=== PATIENT | male | born 1935 | race Caucasian/White ===

== ENCOUNTER 2022-03-19 06:11 | Emergency (ER) | payer MEDICARE, OTHER ==
[~2022-03-19] VITALS: Ht 182.9 cm; Wt 102.3 kg
[2022-03-19] MEDS ORDERED: piperacillin/tazo 3.375gm/50ml 50 ML IV ONE (06:50)
[2022-03-19] MEDS ORDERED: LIDOcaine 1% W/epiNEPHrine 1:100,000 20ml vial SQ ONE (06:50)
[2022-03-19] MEDS ORDERED: LIDOcaine 1% w/EPI 1:100,000 30ml vial (MDV) SQ ONE (06:50)
[2022-03-19 07:56] LABS: BASOPHILS % (AUTO) 0.2 % (0-1); EOSINOPHILS % (AUTO) 0.2 % (0-6); HEMATOCRIT 43.4 % (42.0-52.0); HEMOGLOBIN 14.3 g/dl (14.0-17.9); LYMPHOCYTES # (AUTO) 1.1 X10'3 (1.1-4.8); LYMPHOCYTES % (AUTO) 10.8 % (21-51); MEAN CORPUSCULAR HEMOGLOBIN 30.6 PG (27.0-31.0); MEAN CORPUSCULAR HGB CONC 32.9 g/dL (33.0-36.5); MEAN CORPUSCULAR VOLUME 93.1 FL (78-98); MEAN PLATELET VOLUME 9.7 FL (7.4-10.4); MONOCYTES # (AUTO) 1.2 X10'3 (0-0.9); MONOCYTES % (AUTO) 11.9 % (2-12); NEUTROPHILS # (AUTO) 7.8 X10'3 (1.8-7.7); NEUTROPHILS % (AUTO) 76.9 % (42-75); PLATELET COUNT 177 X10'3 (140-440); RED BLOOD COUNT 4.67 X10'6 (4.70-6.10); RED CELL DISTRIBUTION WIDTH 13.9 % (11.5-14.5); WHITE BLOOD COUNT 10.1 X10'3 (4.5-11.0)
[2022-03-19 08:14] LABS: ALANINE AMINOTRANSFERASE 33 U/L (12-78); ALBUMIN 3.5 G/DL (3.4-5.0); ALBUMIN/GLOBULIN RATIO 0.9 (1.1-1.5); ALKALINE PHOSPHATASE 84 IU/L (46-116); ANION GAP 8 (8-16); ASPARTATE AMINO TRANSFERASE 28 U/L (10-37); BILIRUBIN,TOTAL 1.3 MG/DL (0.1-1.0); BLOOD UREA NITROGEN 21 MG/DL (7-18); BUN/CREATININE RATIO 18.6 (5.4-32.0); CALCIUM 9.4 MG/DL (8.5-10.1); CHLORIDE 101 MMOL/L (99-107); CREATININE 1.13 MG/DL (0.60-1.10); GLUCOSE 117 MG/DL (70-104); MAGNESIUM 1.6 MG/DL (1.5-2.4); SODIUM 137 MMOL/L (135-145); TOTAL CARBON DIOXIDE 27.9 MMOL/L (24-32); TOTAL PROTEIN 7.5 G/DL (6.4-8.2); eGFR 62 ML/MIN
[2022-03-19 08:28] VITALS: BP 131/94
[2022-03-19 09:18] LABS: CLARITY,URINE CLEAR (Clear); COLOR,URINE YELLOW (Yellow); GLUCOSE, URINE NEGATIVE (Neg); KETONES,URINE NEGATIVE (Neg); LEUKOCYTE ESTERASE ,URINE NEGATIVE (Neg); NITRITES, URINE NEGATIVE (Neg); OCCULT BLOOD,URINE SMALL (Neg); PH,URINE 5.5 (4.8-8.0); PROTEIN,URINE NEGATIVE (Neg); UROBILINOGEN,URINE 0.2 E.U/dL (0.2-1.0)
[2022-03-19 09:22] LABS: UA COLLECTION TYPE CLN CATCH MIDSTREAM
[2022-03-19 09:41] LABS: BACTERIA,URINE FEW /HPF (Neg); MUCUS STRANDS NONE SEEN /LPF (Neg); RBC,URINE 0-2 /HPF (0-2); SQUAMOUS EPITHELIAL CELL,UR FEW /LPF (FEW); WBC,URINE 0-4 /HPF (0-4)
[2022-03-19 10:34] LABS: BODY FLUID CRYSTALS QT NONE SEEN (NONE SEEN); CRYSTAL ID, BODY FLD NONE SEEN (NONE SEEN)
[2022-03-19] MEDS ORDERED: DOXY100C76 PO (11:06)
[2022-03-19] MEDS ORDERED: LINE600T11 PO (11:06)
[2022-03-19] MEDS ORDERED: HYDR-3965 PO (11:07)
== END 2022-03-19 11:28 | disposition home or self-care (01) ==
LOC: ER 06:11
DX: L02.511 Cutaneous abscess of right hand (principal); I51.9 Heart disease, unspecified; Z79.899 Other long term (current) drug therapy
CPT/HCPCS: 10060; 36415; 73120; 80053; 81001; 83605; 83735; 84145; 85025; 87040; 87070; 89060; 93005; 96365; 99285; J2543; J3490; A6449

== ENCOUNTER 2022-07-30 18:35 | Emergency (ER) | payer MEDICARE, OTHER ==
[~2022-07-30] VITALS: Ht 182.9 cm; Wt 102.3 kg
[2022-07-30 19:22] VITALS: BP 141/78
[2022-07-30] MEDS ORDERED: acetaminophen 325mg tablet PO ONE (20:25)
[2022-07-30] MEDS ORDERED: HYDROcodone/acetaminophen 5mg/325mg tablet PO ONE (20:25)
[2022-07-30] MEDS ORDERED: HYDR-3965 PO (20:30)
== END 2022-07-30 21:08 | disposition home or self-care (01) ==
LOC: ER 18:36
DX: M79.671 Pain in right foot (principal); M79.89 Other specified soft tissue disorders
CPT/HCPCS: 73610; 73630; 99284

== ENCOUNTER 2025-03-23 16:50 | Emergency (ER) | payer MEDICARE, OTHER ==
[~2025-03-23] VITALS: Ht 182.9 cm; Wt 101.6 kg
--- NOTE | 2025-03-23 17:05 | ELECTROCARDIOGRAPH REPORT ---
[facility] Test Date: 2025-03-23 Test Time: 16:54:40 Pat Name: [facility] Department: EMERGENCY ROOM Patient ID: [facility]-[id number] Room: Gender: M [employer]: [place] : 1935 Requested By: PAUELTTE MUNOZ Order Number: [id number] Reading MD: Dr. RICHARD Oliver Measurements Intervals [place] Rate: 98 P: 0 [place]: 0 QRS: -16 QRSD: 109 T: 28 QT: 354 QTc: 453 Interpretive Statements Atrial fibrillation Incomplete RBBB and LAFB Low voltage, precordial leads RSR' in V1 or V2, right VCD or RVH Electronically Signed On 03-25-2025 15:16:[address] RICHARD Oliver Please click the below link to view image of tracing.
--- NOTE | 2025-03-23 17:11 | Physician Documentation ---
History of Present Illness ~ Chief Complaint: Chest Pain Stated Complaint: CP Time Seen by MD: 21:36 Primary Medical Doctor: DR. TAO HPI Patient is a very pleasant 89-year-old male that presents to the emergency department accompanied by his for angina. Patient reports that he is currently a patient of Dr. Amaya in his previously been diagnosed with AFib. Patient reports he has had intermittent angina since yesterday. Patient denies patient's pain right now but would like to be evaluated. Patient reports that he has a follow up with Dr. Uriarte on Wednesday. Patient denies radiation with chest pain shortness of breath chest pressure vision changes nausea vomiting diarrhea or any other symptoms at this time. Medication Reconciliation Allergies: Coded Allergies: No Known Allergies (Unverified , 03/23/25) Past Medical History Past Medical History: Atrial Fibrillation, Gout Past Surgical History: noncontributory Drug Use: none Lives with: Family Lives In: Home Review of Systems Constitutional: Denies: fever Respiratory: Denies: shortness of breath Cardiovascular: Reports: chest pain Physical Exam Vital Signs: Temperature: 98.3, Source: Temporal, Heart Rate: 98, Respiratory Rate: 16, BP: 139/79, Pulse Oximetry: 99, Weight: 101.600 Oxygen Flow Rate: 0 Physical Exam General: This is a pleasant elderly man, hard of hearing, family at bedside HEENT: Atraumatic, oropharynx appears dry Heart: Irregular rhythm with a heart rate in the 90s, appears atrial fibrillation on the monitor, no loud murmur, normal-appearing peripheral perfusion Lungs: Clear breath sounds bilateral, normal work of breathing, normal oxygen saturation on room air Abdomen: Soft, nondistended, nontender all quadrants Extremities: Warm and well-perfused, no significant edema Neuro: Alert and oriented Psychiatric: Calm and cooperative with exam Progress Results/Orders Results/Orders Vital Signs 03/23/25 03/23/25 03/23/25 03/23/25 16:57 19:00 20:57 22:27 Temp 98.3 98.3 98.1 Pulse 98 88 Resp 16 16 18 18 B/P (MAP) 139/79 124/66 (85) 124/80 Pulse Ox 99 97 99 O2 Flow Rate 0 0 Laboratory Tests Test 03/23/25 17:46 03/23/25 19:19 03/23/25 21:40 White Blood Count 6.7 Red Blood Count 4.61 L Hemoglobin 14.5 Hematocrit 43.2 Mean Corpuscular Volume 93.7 Mean Corpuscular Hemoglobin 31.4 H Mean Corpuscular Hemoglobin Concent 33.5 Red Cell Distribution Width 14.2 Platelet Count 172 Mean Platelet Volume 9.5 Neutrophils (%) (Auto) 64.9 Lymphocytes (%) (Auto) 23.8 Monocytes (%) (Auto) 9.7 Eosinophils (%) (Auto) 1.1 Basophils (%) (Auto) 0.5 Neutrophils # (Auto) 4.3 Lymphocytes # (Auto) 1.6 Monocytes # (Auto) 0.6 Eosinophils # (Auto) 0.1 Basophils # (Auto) 0.0 CBC Comment Sodium Level 142 Potassium Level 4.2 Chloride Level 103 Carbon Dioxide Level 32.3 H Anion Gap 7 L Blood Urea Nitrogen 24 H Creatinine 1.39 H Estimated GFR/1.73 m2 48 BUN/Creatinine Ratio 17.3 Glucose Level 111 H Calcium Level 8.8 Troponin I High Sensitivity 7 7 8 Pro-B-Type Natriuretic Peptide 1732 H Albumin 3.4 Chemistry Comments Troponin I High Sens Percent Delta 0 14 Troponin I Hi Sens Absolute Change 0 1 EKG/XRAY/CT/US/VASC/MRI EKG : Additional Comment I personally interpreted the EKG and this shows: Atrial fibrillation, rate 90, QTC 453, no STEMI Chest X-Ray : Additional Comments I personally interpreted the x-ray, and it shows: No focal consolidation, no significant pulmonary edema, no pneumothorax Heart Score: Heart Score Response (Comments) Value History Moderate Suspicious 1 EKG Repolarization Disturb 1 Age >65 2 Risk Factors 1 or 2 risk factors 1 Troponin Normal limit 0 Total 5 Medical Decision Making Additional information obtaine: family Findings Spoke to family regarding his presentation and past symptoms Heart Score: 5 Differential Dx:Considerations: Include: angina, aortic dissection, chest wall pain, CHF, costochondritis, gastritis, pneumonia Additional Information The patient presents with episodes of chest pain. Per his history and exam this could represent angina. His EKG shows atrial fibrillation but a normal rate, no ischemic changes. His workup was unremarkable including normal troponins. I did offer admission for further cardiac testing, but he repeatedly declined. I doubt dissection, PE, or other dangerous process given his lack of current symptoms. Instead, he will be discharged home with symptomatic treatment including nitroglycerin for further episodes of chest pain. Return precautions given. 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 Departure Time of Disposition: 21:54 Disposition: 01 HOME / SELF CARE / HOMELESS Impression: Primary Impression: Chest pain Condition: Improved Discharge Instructions: Angina, Nitroglycerin Sublingual Powder Referrals: NO PRIMARY CARE PROVIDER (PCP) Education Educated: Patient, Family Educated regarding: diagnosis, treatment, need for follow up Signature Scribe Signature: na Attestation: ALMA ROSA Bill Mar 23, 2025 17:11 GIORGI CRONIN MD Mar 23, 2025 21:55
--- NOTE | 2025-03-23 17:27 | RADIOLOGY REPORT ---
CHEST RADIOGRAPH Indication: CP Technique: Single frontal view of the chest was obtained Comparison: None FINDINGS: Lines and Tubes: None Lungs: Mild elevation of the right hemidiaphragm. Right lower lung zone curvilinear density with minimal left basilar opacity. Pleura: No effusion. No pneumothorax. Cardiomediastinal contours: Unremarkable Bones: No acute osseous abnormality. IMPRESSION: Bilateral lower lung zone atelectasis with elevation of the right hemidiaphragm.
[2025-03-23 18:19] LABS: MEAN PLATELET VOLUME 9.5 FL (7.4-10.4); RED CELL DISTRIBUTION WIDTH 14.2 % (11.5-14.5)
[2025-03-23 18:47] LABS: CREATININE 1.39 MG/DL (0.60-1.10); PRO BRAIN NATRIURETIC PEPTIDE 1732 PG/ML (0-450); TOTAL CARBON DIOXIDE 32.3 MMOL/L (24-32); eCRCL 40 ML/MIN; eGFR 48 ML/MIN
[2025-03-23 20:57] VITALS: PULSE 88
[2025-03-23 22:27] VITALS: BP 124/80; RESP 18; TEMP 98.1; O2SAT 99
== END 2025-03-23 22:31 | disposition home or self-care (01) ==
LOC: ER 16:51
DX: R07.9 Chest pain, unspecified (principal); I48.91 Unspecified atrial fibrillation
CPT/HCPCS: 36415; 71045; 80048; 83880; 84484; 85025; 93005; 99285